=== PATIENT | male | born 1995 | race Caucasian/White ===

== ENCOUNTER 2018-04-20 15:00 | Emergency (ER) | payer SELFPAY ==
[2018-04-20 15:12] VITALS: BP 141/86; PULSE 94; TEMP 98.6
--- NOTE | 2018-04-20 15:18 | PDOC ---
History of Present Illness - General History Source: Patient Exam Limitations: No Limitations - History of Present Illness Initial Comments: 04/20/18 15:23 The patient is a 22 year old male with no significant PMH who presents to the emergency department with a laceration to the dorsum of his right hand. The patient states he was cutting cheese with a knife when he accidentally cut himself. Patient placed a towel on his hand to stop the bleeding prior to arriving at the ER. Patient can move all of his fingers on his right hand during presentation. The patient cannot recall last Tdap vaccination. The patient denies chest pain, shortness of breath, headache and dizziness. Denies fever, chills, nausea, vomit, diarrhea and constipation. Denies dysuria, frequency, urgency and hematuria. Allergies: NKA Past surgical history: None reported. Social history: No reported alcohol, drug, or cigarette use. <Danielle Sharma - Last Filed: 04/20/18 15:25> <Edgar Gomez - Last Filed: 04/20/18 15:35> - General Chief Complaint: Injury Stated Complaint: RT WRIST LACERATION Time Seen by Provider: 04/20/18 15:18 Past History <Danielle Sharma - Last Filed: 04/20/18 15:25> - Past Medical History COPD: No Other medical history: PT DENIES - Suicide/Smoking/Psychosocial Hx Smoking History: Never smoked Have you smoked in the past 12 months: No Hx Alcohol Use: No Drug/Substance Use Hx: No <Edgar Gomez - Last Filed: 04/20/18 15:35> - Past Medical History Allergies/Adverse Reactions: Allergies Allergy/AdvReac Type Severity Reaction Status Date / Time No Known Allergies Allergy Verified 04/20/18 15:02 Home Medications: Ambulatory Orders Cephalexin Monohydrate [Keflex -] 500 mg PO Q8H #15 capsule 04/20/18 Review of Systems - Review of Systems Able to Perform ROS?: Yes Comments:: 04/20/18 15:19 CONSTITUTIONAL: Absent: fever, no chills, no fatigue EYES: Absent: visual changes ENT: Absent: ear pain, no sore throat CARDIOVASCULAR: Absent: chest pain, no palpitations RESPIRATORY: Absent: cough, no SOB GI: Absent: abdominal pain, no nausea, no vomiting, no constipation, no diarrhea GENITOURINARY: Absent: dysuria, no frequency, no hematuria MUSKULOSKELETAL: Absent: back pain, no arthralgia, no myalgia SKIN: Absent: rash Present: Laceration to the right hand. NEURO: Absent: headache <Danielle Sharma - Last Filed: 04/20/18 15:25> *Physical Exam - Vital Signs Last Vital Signs Temp Pulse Resp BP Pulse Ox 98.6 F 94 H 18 141/86 100 04/20/18 15:00 04/20/18 15:00 04/20/18 15:04/20/18 15:00 04/20/18 15:00 - Physical Exam Comments: 04/20/18 15:19 GENERAL: Well-appearing, well-nourished. HEENT: Normocephalic, atraumatic. PERRL, EOM intact. CARDIOVASCULAR: Normal S1, S2. Regular rate and rhythm. PULMONARY: Clear to auscultation bilaterally. ABDOMEN: Soft, non-distended, non-tender. EXTREMITIES: Normal ROM in all four extremities. No gross deformities. SKIN: (+) 4cm linear laceration across the dorsum of the right hand. No swelling. Good capillary refill. Good pulses. Warm, dry. No rashes. NEUROLOGICAL: No focal neurological deficits. Opposition is intact. <ZacharyDanielle - Last Filed: 04/20/18 15:25> - Vital Signs Last Vital Signs Temp Pulse Resp BP Pulse Ox 98.6 F 94 H 18 141/86 100 04/20/18 15:00 04/20/18 15:04/20/18 15:04/20/18 15:00 04/20/18 15:00 <Edgar Gomez - Last Filed: 04/20/18 15:35> Procedures - Laceration/Wound Repair Right Upper Dorsal Hand Wound Length: 2.6 to 5.0 cm Wound Explored: clean Wound's Depth, Shape: into muscle, linear Irrigated w/ Saline: Yes Betadine Prep: No Anesthesia: 1% Lidocaine (3 cc 1% Lidocaine used into skin) Wound Repaired With: Sutures Suture Size/Type: 4:0, nylon Number of Sutures: 7 Sterile Dressing Applied: Yes Progress: 04/20/18 15:31 Pt tolerated procedure well, opposition intact, pulses 2+/4 b/l in UE, capillary refill < 2 sec, bleeding controlled, fingers warm to palpation <Edgar Gomez - Last Filed: 04/20/18 15:35> ED Treatment Course - RADIOLOGY Radiology Studies Ordered: 04/20/18 15:32 Pt with laceration to right hand, sutured placed 7 4-0 Nylon Will given Tetanus and place on antibiotic Return in 7-10 days for removal If worsen return to ER Pt is in agreement with plan <Edgar Gomez - Last Filed: 04/20/18 15:35> Medical Decision Making - Medical Decision Making 04/20/18 15:25 Documentation prepared by Danielle Sharma, acting as medical management specialist for Edgar Gomez MD. <Danielle Sharma - Last Filed: 04/20/18 15:25> *DC/Admit/Observation/Transfer <Danielle Sharma - Last Filed: 04/20/18 15:25> - Discharge Dispostion Decision to Admit order: No <Edgar Gomez - Last Filed: 04/20/18 15:35> Diagnosis at time of Disposition: Laceration of hand Qualifiers: Encounter type: initial encounter Foreign body presence: without foreign body Laterality: right Qualified Code(s): S61.411A - Laceration without foreign body of right hand, initial encounter - Discharge Dispostion Disposition: HOME Condition at time of disposition: Stable - Patient Instructions Printed Discharge Instructions: DI for Laceration Repair Additional Instructions: Keep clean Bandage changes daily Remove sutures in 7-10 days Keflex 500mg 3x/day for 5 days If worsen return to ER
[2018-04-20] MEDS ORDERED: DIPHTH,PERTUSS(ACELL),TET 0.5 ML DISP.SYRIN IM ONE (15:23)
[2018-04-20] MEDS ORDERED: CEPHALEXIN MONOHYDRATE 500 MG CAPSULE (UD) PO ONE (15:23)
[2018-04-20] MEDS ORDERED: CEPHALEXIN MONOHYDRATE 500 MG CAPSULE (UD) ONE (15:25)
== END 2018-04-20 15:38 | disposition home or self-care (01) ==
LOC: FER 15:00
PROC: 0HQFXZZ Repair Right Hand Skin, External Approach (ICD-10-PCS; principal; 2018-04-20)
DX: S61.411A Laceration without foreign body of right hand, initial encounter (principal); W26.0XXA Contact with knife, initial encounter; Y93.G1 Activity, food preparation and clean up; Y92.9 Unspecified place or not applicable
CPT/HCPCS: 90715; 99283-25